=== PATIENT | male | born 1960 | race Caucasian/White ===

== ENCOUNTER 2021-11-07 13:15 | Inpatient (IN) | payer BC ==
[2021-11-07] MEDS ORDERED: ASPIRIN 81 MG CHEWABLE TABLETS PO ONE (14:27)
[2021-11-07] MEDS ORDERED: ASPIRIN 81 MG CHEWABLE TABLETS ONE (15:40)
[2021-11-07 15:51] LABS: BASO % 0.6 % (0-2.0); EOS % 2.1 % (0-4.5); HEMATOCRIT 41.7 % (35.4-49); HEMOGLOBIN 13.7 GM/dL (11.7-16.9); LYMPH % 20.4 % (8-40); MCHC 32.9 g/dl (32.0-35.9); MEAN PLT VOLUME 10.9 fl (7.5-11.1); MONO % 8.6 % (3.8-10.2); NEUT % 68.3 % (42.8-82.8); RBC 4.58 M/mm3 (4.00-5.60); RDW 15.2 % (11.9-15.9); WHITE BLOOD COUNT 8.2 K/mm3 (4.0-10.0)
[2021-11-07 15:59] LABS: INR 1.22 (0.83-1.09); PROTHROMBIN TIME (PATIENT) 14.1 SEC (9.7-13.0)
[2021-11-07 16:15] LABS: CALCIUM 8.3 mg/dL (8.5-10.1)
[2021-11-07 16:16] LABS: ALBUMIN 2.8 g/dl (3.4-5.0); BLOOD UREA NITROGEN 20.2 mg/dL (7-18)
[2021-11-07 16:19] LABS: CREATININE 1.1 mg/dL (0.55-1.3)
[2021-11-07 16:21] LABS: BILIRUBIN,TOTAL 1.8 mg/dL (0.2-1); TOT PROT 5.5 g/dl (6.4-8.2)
[2021-11-07 16:24] LABS: N-TERMINAL BNP 4877.8 pg/ml (5-125)
[2021-11-07] MEDS ORDERED: FUROSEMIDE 40 MG/4 ML INJECTABLE VIAL IVPUSH ONE (16:32)
[2021-11-07 17:51] LABS: PLATELET COUNT 118 10^3/uL (134-434)
[2021-11-07] MEDS ORDERED: FUROSEMIDE 40 MG/4 ML INJECTABLE VIAL ONE (18:12)
[2021-11-07] MEDS ORDERED: CEFTRIAXONE 1,000 MG in DEXTROSE 5%-WATER - 50 ML IVPB ONE (20:34)
[2021-11-07] MEDS ORDERED: CEFTRIAXONE 1 GM/50 ML BAG ONE (20:56)
[2021-11-08] MEDS ORDERED: MELATONIN 5 MG TABLETS PO ONE (04:14)
[2021-11-08 07:18] LABS: HEMATOCRIT 42.3 % (35.4-49); HEMOGLOBIN 13.8 GM/dL (11.7-16.9); MCH 29.6 pg (25.7-33.7); MCHC 32.7 g/dl (32.0-35.9); MEAN CELL VOLUME 90.5 fl (80-96); MEAN PLT VOLUME 11.4 fl (7.5-11.1); PLATELET COUNT 120 10^3/uL (134-434); RBC 4.67 M/mm3 (4.00-5.60); RDW 15.1 % (11.9-15.9); WHITE BLOOD COUNT 9.5 K/mm3 (4.0-10.0)
[2021-11-08 07:36] LABS: ALBUMIN 2.9 g/dl (3.4-5.0); CALCIUM 8.7 mg/dL (8.5-10.1)
[2021-11-08 07:37] LABS: BLOOD UREA NITROGEN 23.7 mg/dL (7-18)
[2021-11-08 07:39] LABS: CREATININE 1.1 mg/dL (0.55-1.3); PHOSPHOROUS 3.9 mg/dL (2.5-4.9)
[2021-11-08 07:42] LABS: BILIRUBIN,TOTAL 2.2 mg/dL (0.2-1); TOT PROT 5.4 g/dl (6.4-8.2)
[2021-11-08] MEDS ORDERED: ENOXAPARIN NA (PORCINE) 40 MG/0.4 ML DISP.SYRIN SQ ONE (09:45)
[2021-11-08] MEDS ORDERED: FUROSEMIDE 40 MG/4 ML INJECTABLE VIAL ONE (09:46)
[2021-11-08] MEDS: ENOXAPARIN NA (PORCINE) 40 MG/0.4 ML DISP.SYRIN SQ SCH (09:50)
[2021-11-08] MEDS: FUROSEMIDE 40 MG/4 ML INJECTABLE VIAL IVPUSH SCH (09:50)
[2021-11-08] MEDS ORDERED: EMPAGLIFLOZIN 10 MG PO SCH (15:15)
[2021-11-08] MEDS ORDERED: SPIRONOLACTONE 25 MG TABLET ONE ×2 (15:52→16:26)
[2021-11-08] MEDS: SACUBITRIL/VALSARTAN 24 MG-26 MG TABLET PO SCH ×2 (16:20→21:57)
[2021-11-08] MEDS: SPIRONOLACTONE 25 MG TABLET PO SCH (16:21)
[2021-11-08 16:42] VITALS: RESP 20
[2021-11-08] MEDS ORDERED: ATORVASTATIN CA 40 MG TABLET (FP) PO SCH (22:00)
[2021-11-09 04:43] VITALS: BMI 22.9
[2021-11-09 05:49] VITALS: TEMP 98.4
[2021-11-09 08:05] LABS: BASO % 0.9 % (0-2.0); EOS % 3.9 % (0-4.5); HEMATOCRIT 45.5 % (35.4-49); HEMOGLOBIN 15.2 GM/dL (11.7-16.9); MCH 29.9 pg (25.7-33.7); MCHC 33.4 g/dl (32.0-35.9); MEAN CELL VOLUME 89.6 fl (80-96); MEAN PLT VOLUME 10.9 fl (7.5-11.1); MONO % 8.5 % (3.8-10.2); NEUT % 60.7 % (42.8-82.8); PLATELET COUNT 115 10^3/uL (134-434); RBC 5.08 M/mm3 (4.00-5.60); RDW 15.3 % (11.9-15.9)
[2021-11-09 08:09] LABS: ALBUMIN 2.8 g/dl (3.4-5.0); BLOOD UREA NITROGEN 21.5 mg/dL (7-18); CALCIUM 8.5 mg/dL (8.5-10.1)
[2021-11-09 08:13] LABS: CREATININE 1.1 mg/dL (0.55-1.3)
[2021-11-09 08:14] LABS: TOT PROT 5.4 g/dl (6.4-8.2)
[2021-11-09] MEDS: ENOXAPARIN NA (PORCINE) 40 MG/0.4 ML DISP.SYRIN SQ SCH (10:29)
[2021-11-09] MEDS: FUROSEMIDE 40 MG/4 ML INJECTABLE VIAL IVPUSH SCH (11:02)
[2021-11-09] MEDS: SPIRONOLACTONE 25 MG TABLET PO SCH (11:02)
[2021-11-09] MEDS: SACUBITRIL/VALSARTAN 24 MG-26 MG TABLET PO SCH (11:03)
[2021-11-09 13:01] VITALS: BP 98/71; PULSE 91
== END 2021-11-09 16:52 | disposition home or self-care (01) | DRG 291 ==
LOC: JER 13:15 → JERBED 20:33 → J4W 11-08 19:37
PROVIDERS: ADMIT Internal Medicine; ATTEND Internal Medicine
DX: I11.0 Hypertensive heart disease with heart failure (principal); I50.23 Acute on chronic systolic (congestive) heart failure; E78.5 Hyperlipidemia, unspecified; R74.01 Elevation of levels of liver transaminase levels
CPT/HCPCS: 0241U-QW; 36415; 71046-TC-FY; 71275-TC; 76705-TC; 80053; 80061; 83036; 83735; 83880; 84100; 84443; 84484; 85025; 85027; 85379; 85610; 86704; 86705; 86803; 87340; 87517; 93005; 93010; 93306-TC; 99285-25; G0378; Q9967